=== PATIENT | male | born 1995 | race Two or more races ===

== ENCOUNTER 2019-12-09 06:36 | Emergency (ER) | payer OTHER ==
[~2019-12-09] VITALS: Ht 180.3 cm; Wt 77.3 kg
[2019-12-09] MEDS ORDERED: OLAN2.5T3 PO (07:44)
[2019-12-09 08:11] LABS: BASOPHILS % (AUTO) 0.6 % (0.0-2.0); EOSINOPHILS % (AUTO) 0.4 % (1.0-6.0); HEMATOCRIT 47.5 % (41-53); HEMOGLOBIN 15.8 g/dL (13.5-17.5); LYMPHOCYTES # (AUTO) 1.8 K/uL (1.0-4.8); LYMPHOCYTES % (AUTO) 14.6 % (22.0-44.0); MEAN CORPUSCULAR HEMOGLOBIN 28.6 pg (26.0-34.0); MEAN CORPUSCULAR HGB CONC 33.3 G/dL (31.0-37.0); MEAN CORPUSCULAR VOLUME 86 fL (80-100); MONOCYTES # (AUTO) 1.2 K/uL (0.1-1.0); MONOCYTES % (AUTO) 9.7 % (2.0-9.0); NEUTROPHILS # (AUTO) 9.4 K/uL (1.8-7.7); NEUTROPHILS % (AUTO) 74.7 % (40.0-70.0); PLATELET COUNT (AUTO) 275 K/uL (150-450); RED BLOOD CELL COUNT(AUTO) 5.52 MIL/uL (4.50-5.90); RED CELL DISTRIBUTION WIDTH 13.6 % (11.5-14.5)
[2019-12-09 08:23] LABS: ANION GAP 9 mmol/L (8-16); CALCIUM, TOTAL 9.5 mg/dL (8.8-10.5); CARBON DIOXIDE 28 mmol/L (22-29); CHLORIDE 100 mmol/L (98-107); GLOMERULAR FILTR. RATE CALC > 60 mL/min (>60); GLUCOSE,RANDOM 95 mg/dL (70-110); POTASSIUM 3.7 mmol/L (3.5-5.1); SODIUM SERUM 137 mmol/L (136-145); UREA NITROGEN, BLOOD 13 mg/dL (7-18)
[2019-12-09 08:32] LABS: ALANINE AMINOTRANSFERASE 27 U/L (12-78); ALBUMIN 4.8 g/dL (3.4-5.0); ALKALINE PHOSPHATASE 72 U/L (46-116); ASPARTATE AMINOTRANSFERASE 17 U/L (15-37); BILIRUBIN,TOTAL 0.4 mg/dL (0.1-1.0); TOTAL PROTEIN, SERUM 8.7 g/dL (6.4-8.2)
[2019-12-09] MEDS ORDERED: OLANZapine 5 MG TABLET PO ONE (09:00)
[2019-12-09 09:58] VITALS: BP 138/90
== END 2019-12-09 10:18 | disposition home or self-care (01) ==
LOC: EMS 06:36
DX: F31.9 Bipolar disorder, unspecified (principal); F14.90 Cocaine use, unspecified, uncomplicated
CPT/HCPCS: 80053; 85025; 99285; G0480

== ENCOUNTER 2021-06-17 10:08 | Inpatient (IN) | payer MEDICAID, OTHER ==
[~2021-06-17] VITALS: Ht 180.3 cm; Wt 77.3 kg
[~2021-06-17 10:08] MED LIST: NALT50TA PO; OLAN10TA22 PO
[2021-06-17 11:55] LABS: BASOPHILS % (AUTO) 0.7 % (0.0-2.0); EOSINOPHILS % (AUTO) 1.2 % (1.0-6.0); HEMATOCRIT 37.5 % (41-53); HEMOGLOBIN 12.3 g/dL (13.5-17.5); LYMPHOCYTES # (AUTO) 1.2 K/uL (1.0-4.8); LYMPHOCYTES % (AUTO) 12.8 % (22.0-44.0); MEAN CORPUSCULAR HEMOGLOBIN 28.2 pg (26.0-34.0); MEAN CORPUSCULAR HGB CONC 32.7 G/dL (31.0-37.0); MEAN CORPUSCULAR VOLUME 86 fL (80-100); MONOCYTES % (AUTO) 10.8 % (2.0-9.0); NEUTROPHILS % (AUTO) 74.5 % (40.0-70.0); PLATELET COUNT (AUTO) 207 K/uL (150-450); RED BLOOD CELL COUNT(AUTO) 4.35 MIL/uL (4.50-5.90); RED CELL DISTRIBUTION WIDTH 14.4 % (11.5-14.5)
[2021-06-17 12:06] LABS: ANION GAP 8 mmol/L (8-16); CALCIUM, TOTAL 8.4 mg/dL (8.8-10.5); CARBON DIOXIDE 26 mmol/L (22-29); CHLORIDE 104 mmol/L (98-107); CREATININE 0.71 mg/dL (0.60-1.30); GLOMERULAR FILTR. RATE CALC > 60 mL/min (>60); GLUCOSE,RANDOM 102 mg/dL (70-110); SODIUM SERUM 138 mmol/L (136-145); UREA NITROGEN, BLOOD 15 mg/dL (7-18)
[2021-06-17 12:11] LABS: ALANINE AMINOTRANSFERASE 28 U/L (12-78); ALBUMIN 3.5 g/dL (3.4-5.0); ALKALINE PHOSPHATASE 84 U/L (46-116); ASPARTATE AMINOTRANSFERASE 25 U/L (15-37); BILIRUBIN,TOTAL 0.2 mg/dL (0.1-1.0); TOTAL PROTEIN, SERUM 6.8 g/dL (6.4-8.2)
[2021-06-17 15:37] LABS: COVID AG,FIA SOURCE NASOPHARYNGEAL
[2021-06-17] MEDS: OLANZapine 10 MG TABLET PO SCH (21:10)
[2021-06-17] MEDS: LORazepam 2 MG TABLET PO PRN (21:15)
[2021-06-18 00:48] LABS: CHOL/HDL RATIO 2.2 (4.2-7.3); CHOLESTEROL 124 mg/dL (131-200); HDL CHOLESTEROL 56 mg/dL (40-60); LDL CHOL (CALC.) 48 mg/dL (0-130); TRIGLYCERIDES 99 mg/dL (15-150)
[2021-06-18 01:37] VITALS: BP 109/72
[2021-06-18 08:43] VITALS: BP 109/68
[2021-06-18] MEDS ORDERED: PETROLATUM,WHITE 28 GM JELLY TP PRN (09:30)
[2021-06-18] MEDS ORDERED: ONDANSETRON HCL 4 MG TABLET PO PRN (09:30)
[2021-06-18] MEDS ORDERED: ALBUTEROL SULFATE HFA 90 MCG/PUFF 8 GM INHALER IH PRN (09:30)
[2021-06-18] MEDS ORDERED: CloNIDine HCL 0.1 MG TABLET PO PRN (09:30)
[2021-06-18] MEDS ORDERED: MAG HYDROX/AL HYDROX/SIMETH ES 30 ML SUSPENSION UDCUP PO PRN (09:30)
[2021-06-18] MEDS ORDERED: MAGNESIUM HYDROXIDE SUSPENSION 30 ML UDCUP PO PRN (09:30)
[2021-06-18] MEDS ORDERED: LOPERAMIDE HCL 2 MG CAPSULE PO PRN (09:30)
[2021-06-18] MEDS ORDERED: ACETAMINOPHEN 325 MG TABLET PO PRN (09:30)
[2021-06-18] MEDS ORDERED: GuaiFENesin/D-METHORPHAN [SUGAR-FREE] 200-20MG/10 ML SYRUP UDCUP PO PRN (09:30)
[2021-06-18] MEDS ORDERED: DOCUSATE SODIUM 100 MG CAPSULE PO PRN (09:30)
[2021-06-18] MEDS: OLANZapine 10 MG TABLET PO SCH ×2 (09:41→19:57)
[2021-06-18 16:30] VITALS: BP 100/67
[2021-06-19 04:53] VITALS: BP 132/62
[2021-06-19 08:27] VITALS: BP 108/64
[2021-06-19] MEDS: OLANZapine 10 MG TABLET PO SCH ×2 (11:39→11:43)
[2021-06-19 16:25] VITALS: BP 120/79
[2021-06-20 05:57] VITALS: BP 108/61
[2021-06-20] MEDS: OLANZapine 10 MG TABLET PO SCH ×2 (08:18→20:38)
[2021-06-20 16:32] VITALS: BP 119/73
[2021-06-21 05:20] VITALS: BP 110/68
[2021-06-21] MEDS: OLANZapine 10 MG TABLET PO SCH ×2 (09:34→20:35)
[2021-06-21 16:38] VITALS: BP 117/75
[2021-06-22 06:20] VITALS: BP 118/69
[2021-06-22 08:22] VITALS: BP 118/68
[2021-06-22] MEDS: OLANZapine 10 MG TABLET PO SCH ×2 (10:01→20:07)
[2021-06-22 16:46] VITALS: BP 120/66
[2021-06-22] MEDS: ZOLPIDEM TARTRATE 10 MG TABLET PO PRN (22:03)
[2021-06-23 06:09] VITALS: BP 109/59
[2021-06-23 08:10] LABS: COVID AG,FIA SOURCE NASOPHARYNGEAL
[2021-06-23] MEDS: OLANZapine 10 MG TABLET PO SCH ×2 (09:33→20:23)
[2021-06-23 16:59] VITALS: BP 125/81
[2021-06-23] MEDS: NICOTINE 14 MG/24 HOUR PATCH TD PRN (17:58)
[2021-06-23] MEDS: LORazepam 2 MG TABLET PO PRN (20:22)
[2021-06-23] MEDS: ZOLPIDEM TARTRATE 10 MG TABLET PO PRN (21:45)
[2021-06-24 06:00] VITALS: BP 118/72
[2021-06-24] MEDS: OLANZapine 10 MG TABLET PO SCH ×2 (08:16→20:05)
[2021-06-24 08:45] VITALS: BP 117/74
[2021-06-24] MEDS: NICOTINE 14 MG/24 HOUR PATCH TD PRN (15:41)
[2021-06-24 16:30] VITALS: BP 115/69
[2021-06-24] MEDS: ZOLPIDEM TARTRATE 10 MG TABLET PO PRN (21:47)
[2021-06-25 07:16] VITALS: BP 120/71
[2021-06-25 08:15] VITALS: BP 116/82
[2021-06-25] MEDS: OLANZapine 10 MG TABLET PO SCH ×2 (09:11→21:03)
[2021-06-25] MEDS: NICOTINE 14 MG/24 HOUR PATCH TD PRN (09:59)
[2021-06-25 16:21] VITALS: BP 116/80
[2021-06-25] MEDS: ZOLPIDEM TARTRATE 10 MG TABLET PO PRN (21:17)
[2021-06-26 01:24] VITALS: BP 121/73
[2021-06-26 08:26] VITALS: BP 110/81
[2021-06-26] MEDS: OLANZapine 10 MG TABLET PO SCH ×2 (08:39→21:29)
[2021-06-26] MEDS: NICOTINE 14 MG/24 HOUR PATCH TD PRN (15:14)
[2021-06-26 16:13] VITALS: BP 128/68
[2021-06-27] MEDS: ZOLPIDEM TARTRATE 10 MG TABLET PO PRN ×2 (00:10→21:47)
[2021-06-27 02:54] VITALS: BP 122/67
[2021-06-27] MEDS: OLANZapine 10 MG TABLET PO SCH ×2 (09:04→20:32)
[2021-06-27 09:46] VITALS: BP 125/77
[2021-06-27] MEDS: NICOTINE 14 MG/24 HOUR PATCH TD PRN ×2 (14:25→14:29)
[2021-06-27] MEDS: LORazepam 2 MG TABLET PO PRN (15:56)
[2021-06-27 16:30] VITALS: BP 115/69
[2021-06-28 00:20] VITALS: BP 120/69
[2021-06-28 08:37] VITALS: BP 122/71
[2021-06-28] MEDS: OLANZapine 10 MG TABLET PO SCH ×2 (08:46→20:38)
[2021-06-28 16:32] VITALS: BP 104/69
[2021-06-28] MEDS: NICOTINE 14 MG/24 HOUR PATCH TD PRN (18:17)
[2021-06-28] MEDS: ZOLPIDEM TARTRATE 10 MG TABLET PO PRN (21:06)
[2021-06-29 01:21] VITALS: BP 123/68
[2021-06-29] MEDS: OLANZapine 10 MG TABLET PO SCH ×2 (08:55→20:35)
[2021-06-29] MEDS: NICOTINE 14 MG/24 HOUR PATCH TD PRN (09:02)
[2021-06-29 09:31] VITALS: BP 115/75
[2021-06-29] MEDS: LORazepam 2 MG TABLET PO PRN (14:42)
[2021-06-29 16:35] VITALS: BP 116/76
[2021-06-29] MEDS: ZOLPIDEM TARTRATE 10 MG TABLET PO PRN (21:08)
[2021-06-30 06:11] VITALS: BP 123/72
[2021-06-30 08:01] LABS: COVID AG,FIA SOURCE NASOPHARYNGEAL
[2021-06-30 09:09] VITALS: BP 104/59
[2021-06-30] MEDS: OLANZapine 10 MG TABLET PO SCH ×2 (09:21→21:03)
[2021-06-30] MEDS: NICOTINE 14 MG/24 HOUR PATCH TD PRN (12:41)
[2021-06-30 16:30] VITALS: BP 117/70
[2021-06-30] MEDS: LORazepam 2 MG TABLET PO PRN (17:21)
[2021-06-30] MEDS: ZOLPIDEM TARTRATE 10 MG TABLET PO PRN (21:03)
[2021-07-01 03:53] VITALS: BP 120/72
[2021-07-01] MEDS: OLANZapine 10 MG TABLET PO SCH ×2 (08:50→20:29)
[2021-07-01 09:16] VITALS: BP 120/74
[2021-07-01] MEDS: LORazepam 2 MG TABLET PO PRN ×3 (12:23→22:47)
[2021-07-01] MEDS: NICOTINE 14 MG/24 HOUR PATCH TD PRN (12:24)
[2021-07-01 16:37] VITALS: BP 115/71
[2021-07-01] MEDS: HALOPERIDOL 5 MG TABLET PO PRN (18:43)
[2021-07-01] MEDS: ZOLPIDEM TARTRATE 10 MG TABLET PO PRN (20:29)
[2021-07-02] MEDS: HALOPERIDOL 5 MG TABLET PO PRN ×2 (00:12→13:15)
[2021-07-02 03:40] VITALS: BP 117/77
[2021-07-02 08:40] VITALS: BP 118/80
[2021-07-02] MEDS: OLANZapine 10 MG TABLET PO SCH ×2 (09:33→20:04)
[2021-07-02] MEDS: LORazepam 2 MG TABLET PO PRN (13:15)
[2021-07-02 16:25] VITALS: BP 125/79
[2021-07-02] MEDS: ZOLPIDEM TARTRATE 10 MG TABLET PO PRN (20:04)
[2021-07-02] MEDS: NICOTINE 14 MG/24 HOUR PATCH TD PRN (20:04)
[2021-07-03 02:02] VITALS: BP 117/71
[2021-07-03] MEDS: LORazepam 2 MG TABLET PO PRN ×3 (02:07→22:13)
[2021-07-03 03:21] VITALS: BP 117/71
[2021-07-03 08:23] VITALS: BP 113/67
[2021-07-03] MEDS: OLANZapine 10 MG TABLET PO SCH ×2 (09:35→20:44)
[2021-07-03] MEDS: NICOTINE 14 MG/24 HOUR PATCH TD PRN (12:56)
[2021-07-03] MEDS: HALOPERIDOL 5 MG TABLET PO PRN ×2 (12:57→23:44)
[2021-07-03 16:28] VITALS: BP 132/81
[2021-07-03] MEDS: ZOLPIDEM TARTRATE 10 MG TABLET PO PRN (20:49)
[2021-07-04 01:46] VITALS: BP 117/79
[2021-07-04 09:03] VITALS: BP 106/62
[2021-07-04] MEDS: OLANZapine 10 MG TABLET PO SCH (09:16)
[2021-07-04 16:28] VITALS: BP 118/75
[2021-07-04] MEDS: HALOPERIDOL 5 MG TABLET PO PRN ×2 (17:22→22:47)
[2021-07-04] MEDS: OLANZapine 10 MG RAPDIS TABLET PO SCH (20:54)
[2021-07-04] MEDS: NICOTINE 14 MG/24 HOUR PATCH TD PRN (20:55)
[2021-07-04] MEDS: ZOLPIDEM TARTRATE 10 MG TABLET PO PRN (20:55)
[2021-07-04] MEDS: LORazepam 2 MG TABLET PO PRN (22:47)
[2021-07-05 01:55] VITALS: BP 125/77
[2021-07-05 08:53] VITALS: BP 125/84
[2021-07-05] MEDS: LORazepam 2 MG TABLET PO PRN (15:30)
[2021-07-05] MEDS: NICOTINE 14 MG/24 HOUR PATCH TD PRN (15:32)
[2021-07-05 16:35] VITALS: BP 118/81
[2021-07-05] MEDS: OLANZapine 10 MG RAPDIS TABLET PO SCH (20:07)
[2021-07-06 01:00] VITALS: BP 103/63
[2021-07-06] MEDS: ZOLPIDEM TARTRATE 10 MG TABLET PO PRN ×2 (03:00→21:30)
[2021-07-06 09:08] VITALS: BP 118/72
[2021-07-06] MEDS: NICOTINE 14 MG/24 HOUR PATCH TD PRN (13:14)
[2021-07-06] MEDS: LORazepam 2 MG TABLET PO PRN ×2 (13:59→23:09)
[2021-07-06 14:54] VITALS: BP 115/68
[2021-07-06 16:26] VITALS: BP 122/82
[2021-07-06] MEDS: OLANZapine 10 MG RAPDIS TABLET PO SCH (19:41)
[2021-07-06] MEDS: IBUPROFEN 400 MG TABLET PO PRN (20:21)
[2021-07-07 03:11] VITALS: BP 117/71
[2021-07-07 08:30] LABS: COVID AG,FIA SOURCE NASOPHARYNGEAL
[2021-07-07 08:35] VITALS: BP 103/66
[2021-07-07 16:18] VITALS: BP 102/70
[2021-07-07] MEDS: NICOTINE 14 MG/24 HOUR PATCH TD PRN (16:46)
[2021-07-07] MEDS: LORazepam 2 MG TABLET PO PRN (16:46)
[2021-07-07] MEDS: OLANZapine 10 MG RAPDIS TABLET PO SCH (20:27)
[2021-07-07] MEDS: ZOLPIDEM TARTRATE 10 MG TABLET PO PRN (21:44)
[2021-07-07] MEDS: IBUPROFEN 400 MG TABLET PO PRN (21:44)
[2021-07-08 01:14] VITALS: BP 123/72
[2021-07-08 08:50] VITALS: BP 127/76
[2021-07-08] MEDS: NICOTINE 14 MG/24 HOUR PATCH TD PRN (12:23)
[2021-07-08] MEDS: LORazepam 2 MG TABLET PO PRN ×2 (12:23→19:09)
[2021-07-08 16:31] VITALS: BP 116/75
[2021-07-08] MEDS: HALOPERIDOL 5 MG TABLET PO PRN (19:09)
[2021-07-08] MEDS: OLANZapine 10 MG RAPDIS TABLET PO SCH (20:05)
[2021-07-08] MEDS: ZOLPIDEM TARTRATE 10 MG TABLET PO PRN (20:05)
[2021-07-08 21:26] VITALS: BP 124/80
[2021-07-08] MEDS: IBUPROFEN 400 MG TABLET PO PRN (21:26)
[2021-07-09 00:44] VITALS: BP 107/67
[2021-07-09] MEDS: LORazepam 2 MG TABLET PO PRN ×3 (08:17→20:40)
[2021-07-09 08:38] VITALS: BP 118/76
[2021-07-09] MEDS: NICOTINE 14 MG/24 HOUR PATCH TD PRN (14:44)
[2021-07-09 16:39] VITALS: BP 111/66
[2021-07-09] MEDS: OLANZapine 10 MG RAPDIS TABLET PO SCH (20:39)
[2021-07-09] MEDS: ZOLPIDEM TARTRATE 10 MG TABLET PO PRN (22:04)
[2021-07-10 02:11] VITALS: BP 122/74
[2021-07-10 09:01] VITALS: BP 108/74
[2021-07-10] MEDS: LORazepam 2 MG TABLET PO PRN ×3 (11:50→20:24)
[2021-07-10] MEDS: NICOTINE 14 MG/24 HOUR PATCH TD PRN (12:35)
[2021-07-10] MEDS: IBUPROFEN 400 MG TABLET PO PRN (16:20)
[2021-07-10 16:22] VITALS: BP 111/68
[2021-07-10] MEDS: HALOPERIDOL 5 MG TABLET PO PRN (18:20)
[2021-07-10] MEDS: OLANZapine 10 MG RAPDIS TABLET PO SCH (20:38)
[2021-07-10] MEDS: ZOLPIDEM TARTRATE 10 MG TABLET PO PRN (22:05)
[2021-07-11 01:14] VITALS: BP 125/78
[2021-07-11 08:42] VITALS: BP 113/73
[2021-07-11] MEDS: NICOTINE 14 MG/24 HOUR PATCH TD PRN (13:16)
[2021-07-11] MEDS: IBUPROFEN 400 MG TABLET PO PRN (16:10)
[2021-07-11 16:34] VITALS: BP 113/67
[2021-07-11] MEDS: OLANZapine 10 MG RAPDIS TABLET PO SCH (20:25)
[2021-07-11] MEDS: ZOLPIDEM TARTRATE 10 MG TABLET PO PRN (20:54)
[2021-07-11] MEDS: LORazepam 2 MG TABLET PO PRN (21:43)
[2021-07-12 00:27] VITALS: BP 110/64
[2021-07-12 08:33] VITALS: BP 128/86
[2021-07-12] MEDS: NICOTINE 14 MG/24 HOUR PATCH TD PRN (13:00)
[2021-07-12] MEDS: IBUPROFEN 400 MG TABLET PO PRN (13:17)
[2021-07-12 16:25] VITALS: BP 112/67
[2021-07-12] MEDS: LORazepam 2 MG TABLET PO PRN ×2 (17:24→23:52)
[2021-07-12] MEDS: OLANZapine 10 MG RAPDIS TABLET PO SCH (21:09)
[2021-07-12] MEDS: ZOLPIDEM TARTRATE 10 MG TABLET PO PRN (21:56)
[2021-07-13 03:41] VITALS: BP 112/76
[2021-07-13 08:27] VITALS: BP 118/68
[2021-07-13] MEDS: LORazepam 2 MG TABLET PO PRN (13:23)
[2021-07-13 16:30] VITALS: BP 115/78
== END 2021-07-13 20:53 | disposition home or self-care (01) | DRG 750 ==
LOC: EMS 10:23 → B2S 20:40
DX: F25.0 Schizoaffective disorder, bipolar type (principal); E83.51 Hypocalcemia; F29 Unspecified psychosis not due to a substance or known physiological condition; D64.9 Anemia, unspecified; S60.222A Contusion of left hand, initial encounter; F12.99 Cannabis use, unspecified with unspecified cannabis-induced disorder; F17.210 Nicotine dependence, cigarettes, uncomplicated; F15.99 Other stimulant use, unspecified with unspecified stimulant-induced disorder; F14.10 Cocaine abuse, uncomplicated; Z20.822 Contact with and (suspected) exposure to COVID-19; Y93.89 Activity, other specified; Y92.098 Other place in other non-institutional residence as the place of occurrence of the external cause; Y99.8 Other external cause status; Z72.89 Other problems related to lifestyle; Z71.51 Drug abuse counseling and surveillance of drug abuser; Z59.00 Homelessness unspecified
CPT/HCPCS: 80053; 80061; 85025; 99285; G0480

== ENCOUNTER 2022-03-09 22:03 | Emergency (ER) | payer MEDICAID ==
[~2022-03-09] VITALS: Ht 180.3 cm; Wt 75.2 kg
[~2022-03-09 22:03] MED LIST changes: -NALT50TA PO
[2022-03-09 22:09] VITALS: BP 130/80
== END 2022-03-10 01:46 | disposition left against medical advice (07) ==
LOC: EMS 22:05
DX: R44.2 Other hallucinations (principal); Z53.21 Procedure and treatment not carried out due to patient leaving prior to being seen by health care provider